=== PATIENT | male | born 1975 | race Caucasian/White ===

== ENCOUNTER → 2017-06-22 | Day surgery (SDC) | payer BC ==
[~2017-06-22] VITALS: Ht 177.8 cm; Wt 79.5 kg
[~2017-06-22] MED LIST: ACETAMINOPHEN 1000 MG/100 ML 100 ML IV ONE; ACETAMINOPHEN/HYDROcodone 325 MG/10 MG TAB ONE; BUPIVACAINE HCL PF 0.5% 30 ML VIAL ONE; CEPH-460 PO; CHLORHEXIDINE GLUCONATE 2 % 1 PACK (2 CLOTHS) TOPICAL PRN; HYDR-3288 PO; IBUP1TAB7 PO; KETOROLAC TROMETHAMINE 30 MG/ML (IVP) VIAL IV PUSH ONE; LACTATED RINGER'S 1000 ML INJ 1,000 ML IV ONE; LACTATED RINGER'S 1000 ML IV PRN; LIDOCAINE HCL 1% PF 5 ML SYRINGE OTHER ONE; LIDOCAINE HCL 2% 50 ML VIAL ONE; METOPROLOL TARTRATE 25 MG TAB PO PRN; MIDAZOLAM HCL 2 MG/2 ML VIAL ONE; NEOMYCIN/POLYMYXIN 1 ML G.U. IRRIGANT ONE; ONDANSETRON HCL 4 MG/2 ML VIAL IV PUSH ONE; POVIDONE IODINE 5% (ANTISEPSIS KIT) 4 APPLICATIONS EACH NARE PRN; PROPOFOL 200 MG/20 ML AMP IV ONE; SODIUM CHLORID 0.9% 500 ML IV PRN; ceFAZolin 2 GM PREMIX 50 ML IV SCH
[2017-06-22 14:02] VITALS: PULSE 102
[2017-06-22 14:30] VITALS: PULSE 83; TEMP 99.1
[2017-06-22 15:30] VITALS: BP 112/63; PULSE 84; RESP 14; O2SAT 99
--- NOTE | 2017-06-23 12:21 | MP ---
cc: ISAIAH DELUCA III, M.D. 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 PROCEDURE 1. Left scaphoidectomy. 2. Left wrist foreign body removal. 3. Left wrist four-corner fusion. 4. Left wrist posterior interosseous neurectomy. 5. Left radial styloidectomy. 6. Use of image intensifier. SURGEON Isaiah Deluca III, M.D. DETAILS OF PROCEDURE The patient was brought to the operating room, placed supine on the operating table. After the correct site and side of surgery were verified by members of each team in the room multiple times including the patient and myself and after adequate preoperative markings and preoperative written consent were verified by everyone and after adequate general anesthesia had been achieved, the left upper extremity was prepped and draped in the traditional sterile surgical fashion. Using the mini C-arm a real-time study, the intended procedure was verified. A 50/50 mixture of 2% plain lidocaine and 0.5% plain Marcaine was infiltrated in the skin and subcutaneous tissue dorsally and into the wrist capsule. The limb was exsanguinated with an Benjie wrap and a highly placed well-padded axillary tourniquet was inflated to 200 mmHg for a total of 114 minutes. An angled incision on the dorsal aspect of the wrist was made and carried down through skin and subcutaneous tissue. Blunt dissection was performed. Bipolar electrocautery was used as needed. The third dorsal compartment was identified and the EPL tendon was freed. The space in between the second, third and fourth dorsal compartments was opened and the extensor tendons of the hand were retracted ulnarly and the others radially. A ligament-sparing flap entry was made into the dorsal aspect of the wrist; it was radially based. The wrist was examined and there was significant extension of the lunate. There was no evidence of any lunate fossa arthritis. There was a mild amount of synovitis around the scaphoid. The scaphoid was then excised. The proximal pole was excised easily in one piece but the distal pole had a screw within it and had to be removed in a piecemeal fashion and this was not done without complication. 99% of the distal pole was removed. The posterior interosseous nerve was identified in its groove on the dorsal ulnar aspect of the radius and a 3 cm segment was excised in the usual fashion and the proximal end cauterized. Joysticks were used in the lunate and it was then reduced and the capitate reduced within it. The four bones were then decorticated of their articular cartilage in between them as well as the cortical layer of bone down to cancellous bone being exposed. A window was made in the dorsal aspect of the distal radius elevating Manuela's tubercle. Cancellous bone graft was then excised. This was placed into a cup. Thorough irrigation with saline was used throughout the entire case at several different times. The four bones were then reduced and secured in place using a K-wire through the base of the radius into the lunate and into the capitate. Using the TriMed wrist fusion set the larger of the two reamers was then inserted into the four corners and the countersinking maneuver was performed. Once the cup would sit below the dorsal most cortex that this was stopped. Thorough irrigation was performed again. The bone graft was inserted between all of the bones which were then re-reduced with the bone graft in place. Two screws were then placed in each bone and these were measured and tailored to length and angle. Passive range of motion examination was then performed after the K-wires were removed and it was unrestricted essentially. There may have been some impingement radially so a 1-2 mm radial styloidectomy was performed in the usual fashion. The reduction was then examined again for final x-rays using the mini C-arm and the neutral reduction of the SLAC wrist was confirmed. There were no other anatomic abnormalities. Thorough irrigation was performed again. The dorsal wrist capsule was repaired using multiple interrupted and running 2-0 Ethibond sutures. The wrist joint was then filled with the local anesthetic again for postoperative pain control. The dorsal distal radius bone graft donor site was then filled with DBX bone putty and Manuela's tubercle replaced. Thorough irrigation was performed again. The interosseous ligaments were then repaired as needed which was very limited. Passive range of motion of all the fingers and thumbs as well as wrist was performed in all planes and was found to be unlimited and smooth and tenodesis was normal. The extensor retinaculum was repaired using 3-0 Ethibond sutures in an interrupted fashion. Thorough irrigation was performed again. The skin edges were re-approximated using deep 3-0 Vicryl sutures and running 4-0 nylon sutures. The hand and arm were thoroughly cleansed and dried. The axillary tourniquet was released well prior to any closure after 114 minutes at 200 mmHg. The hand and arm were thoroughly cleansed and dried. Betadine and Adaptic dressings were applied on top of the wounds followed by a bulky well-padded, well molded short-arm volar immobilizing splint. The patient tolerated the procedure well. MD CHRISTOPHER Reynolds III/AYO /2:40 PM /11:55 AM
== END | disposition home or self-care (01) ==
LOC: PHSDC 09:21
PROVIDERS: ATTEND Orthopaedic Surgery Hand Surgery
DX: S62.015K Nondisplaced fracture of distal pole of navicular [scaphoid] bone of left wrist, subsequent encounter for fracture with nonunion (principal)
CPT/HCPCS: 01830; 20670; 25440; 25800; 76000; C1713; J0131; J0690; J1885; J2250; J2405; J3010; J7120